=== PATIENT | male | born 1955 | race Caucasian/White ===

== ENCOUNTER 2024-06-08 15:41 | Emergency (ER) | payer MEDICAID ==
[2024-06-08] MEDS: Diphtheria,Pertussis(Acell),Tetanus Vaccine 0.5 ML Syringe IM ONE (16:29)
[2024-06-08] MEDS: Lidocaine 1% 10 ML MDV INJECT ONE (16:39)
== END 2024-06-08 16:59 | disposition home or self-care (01) ==
LOC: JD.ED 15:41
DX: S61.216A Laceration without foreign body of right little finger without damage to nail, initial encounter (principal); W45.8XXA Other foreign body or object entering through skin, initial encounter; Z23 Encounter for immunization
CPT/HCPCS: 12001; 90471; 90715; 99282-25; J3490